=== PATIENT | female | born 1960 | race Caucasian/White ===

== ENCOUNTER 2016-06-21 12:08 | Emergency (ER) | payer OTHER ==
--- NOTE | 2016-06-22 05:15 | ED CLINICAL REPORT ---
Clinical Report - Physicians/Mid Levels [facility] [address] [place] [address] 06/21/2016 12:13 Patient: SOWMYA BRIGHT Time Seen: 12:40. Arrived- By private vehicle. Historian- patient. HISTORY OF PRESENT ILLNESS Chief Complaint: BEHAVIOR CHANGE and AGITATED. This started several days ago. No situational problems or recent drug use or alcohol consumption. She has exhibited a behavior change. She has had mood swings and insomnia. Has not been eating or sleeping. She has had anxiety and yazdanism delusions. Has been paranoid. No suicidal thoughts or self-injury inflicted. The symptoms are described as severe. No injury is present. Similar symptoms previously: Diagnosis: (unknown psychiatric diagnosis). ( She was taking psychiatric medications briefly, but not for several years per her ). Recent medical care: Not recently seen/assessed. REVIEW OF SYSTEMS No headache, weakness, chest pain, palpitations or abdominal pain. No vomiting, diarrhea, black stools, numbness or fever. No sore throat, cough, difficulty breathing, urinary frequency or skin rash. No enlarged lymph nodes. All systems otherwise negative, except as recorded above. PAST HISTORY ( Aneurysm. Hypertension. Anemia. Surgeries: Aneurysm Clip []. ). SOCIAL HISTORY Never smoker. No alcohol use or drug use. Is a local resident. Has social support. ADDITIONAL NOTES The nursing notes have been reviewed. PHYSICAL EXAM Vital Signs: 06/21/2016 13:00 BP: 189/103. HR: 94. RR: 14. O2 saturation: 100%. Temp: 98.3 F. Pain level now: 0/10. Appearance: Alert. Patient is in moderate distress. Patient is uncooperative. Anxious. Eyes: Pupils equal, round and reactive to light. No scleral icterus. ENT: The mucous membranes are not dry. Neck: Normal inspection. Neck supple. CVS: Normal heart rate and rhythm. Heart sounds normal. Respiratory: Breath sounds normal. Chest nontender. Abdomen: Soft and nontender. Back: No tenderness. Skin: Skin warm and dry. Normal skin color. Normal skin turgor. Skin not cool on palpation. No signs of IV drug use or self-injury or diaphoresis. Extremities: Extremities exhibit normal ROM. No lower extremity edema. Psych / Neuro: Speech not abnormal. She is not disoriented. The patient exhibits altered thought processes. Appears to have yazdanism delusions. Denies suicidal thoughts. Patient does not express homicidal thoughts. She does not appear to understand hers illness or feel treatment is necessary. She seems unconcerned about hers current condition. Cranial nerves normal (as tested). No cerebellar findings. No motor deficit. No sensory deficit. Reflexes normal. LABS, X-RAYS, AND EKG Laboratory Tests: UA-Culture if indicated: (EUGENE: 06/21/2016 13:20) ( [facility] 06/21[facility]2016 13:52) Final results Test Result Flag Units (Reference) URINE COLOR YELLOW URINE APPEARANCE CLEAR URINE GLUCOSE NEGATIVE (NEGATIVE) URINE BILIRUBIN NEGATIVE (NEGATIVE) URINE KETONE NEGATIVE (NEGATIVE) URINE SPECIFIC GRAVITY <= 1.005 L (1.010-1.030) URINE PH 6.0 (5.0-8.0) URINE PROTEIN NEGATIVE (NEGATIVE) URINE UROBILINOGEN 0.2 EU/dL (0.2-1.0) URINE NITRITE NEGATIVE (NEGATIVE) URINE BLOOD TRACE-INTACT (NEGATIVE) URINE LEUK ESTERASE POSITIVE (NEGATIVE) URINE RBC NONE SEEN rbc/hpf (0-1) URINE WBC 3-5 wbc/hpf (0-1) URINE EPITHELIAL CELLS 5-10 EPI/hpf (0-5) URINE BACTERIA MODERATE (2+ TO 3+) (NONE SEEN) URINE COMMENT CULTURE INDICATED URINE CULTURES ARE SET-UP BASED ON THE FOLLOWING CRITERIA:POSITIVE NITRITEPOSITIVE LEUKOCYTE ESTERASEGREATER THAN 10 WHITE BLOOD CELLSMODERATE (2+) OR GREATER BACTERIA Urine: (EUGENE: 06/21/2016 13:20) ( [facility] 06/21/2016 13:41) Final results Test Result Flag Units (Reference) URINE NEGATIVE CBC w Diff: (EUGENE: 06/21/2016 13:20) ( MsgRcvd 06/21/2016 13:38) Final results Test Result Flag Units (Reference) WHITE BLOOD COUNT 6.5 K/uL (4.5-11.5) RED BLOOD COUNT 4.74 M/uL (4.00-5.20) HEMOGLOBIN 13.6 gm/dL (12.0-16.0) HEMATOCRIT 40.0 % (36.0-46.0) MEAN CELL VOLUME 84 fL (80-100) MEAN CORPUSCULAR HGB 29 pg (26-34) MEAN CORPUSCULAR HGB CONC 34 g/dL (31-37) RED CELL DISTRIBUTION WIDTH 12.8 % (11.6-14.8) PLATELET COUNT 294 K/uL (150-400) NEUTROPHIL % 71.3 % (50-75) LYMPH % 23.3 L % (25-40) MONO % 5.0 % (3-14) EOSINOPHIL % 0.1 % (0-4) BASOPHIL % 0.3 % (0-2) PT with INR: (EUGENE: 06/21/2016 13:20) ( [facility] 06/21/2016 13:49) Final results Test Result Flag Units (Reference) INR 0.9 (0.8-1.2) Low Intensity Therapy: INR 1.5-2.0 PT range 18.5-23.1Mod.Intensity Therapy: INR 2.0-3.0 PT range 23.1-31.5High Intensity Therapy: INR 2.5-3.5 PT range 27.4-35.5High Intensity Therapy 2: INR 3.0-4.0 PT range 31.5-39.3 Ethyl Alcohol: (EUGENE: 06/21/2016 13:30) ( [facility] 06/21/2016 15:02) Final results Test Result Flag Units (Reference) ETHYL ALCOHOL < 3.0 L mg/dL (3-10) Urine Drug Screen: (EUGENE: 06/21/2016 13:20) ( [facility] 06/21/2016 14:09) Final results Test Result Flag Units (Reference) AMPHETAMINE/METHAMPHETAMINE NEGATIVE (NEGATIVE) BARBITURATE NEGATIVE (NEGATIVE) BENZODIAZEPINE NEGATIVE (NEGATIVE) CANNABINOID NEGATIVE (NEGATIVE) COCAINE NEGATIVE (NEGATIVE) ECSTASY NEGATIVE (NEGATIVE) METHADONE NEGATIVE (NEGATIVE) OPIATE NEGATIVE (NEGATIVE) The urine drug screen is a qualitative screening test fordrug overdose and abuse. All screen results should beconsidered as presumptive.Drugs screened for are as follows:BenzodiazepinesCocaineAmphetamines/MetamphetaminesTHC (Tetrahydrocannabinol)OpiatesBarbituratesEcstasyMethadonePositive results are unconfirmed. For confirmation, notifythe lab for the specimen to be sent to the reference lab.All confirmations must be performed by a differentmethodology.The ingestion of natural herbal and plant productscontaining Ephedra/Ephedra metabolites can produce in urineone or more substances capable of cross reacting withamphetamine/methamphetamine immunoassays. These testsprovide a preliminary result only. A more specificalternative chemical method must be used to obtain aconfirmed analytical result. Salicylate Level: (EUGENE: 06/21/2016 13:20) ( MsgRcvd 06/21/2016 14:10) Final results Test Result Flag Units (Reference) SALICYLATE <2.8 L mg/dL (2.8-20) CMP: (EUGENE: 06/21/2016 13:20) ( MsgRcvd 06/21/2016 14:11) Final results Test Result Flag Units (Reference) GLUCOSE 151 H mg/dL (70-110) BUN 13 mg/dL (7-18) CREATININE 0.7 mg/dL (0.6-1.3) Estimated GFR >60 mL/min Estimated GFR- >60 mL/min Note: Persistent reduction over 3 months in eGFR<60 mL/min/1.73 m2 defines CKD. Patients with eGFR values>=60 mL/min/1.73 m2 may also have CKD if evidence ofpersistent proteinuria. Additional information may be foundat www.kidney.org. SODIUM 141 mmol/L (136-145) POTASSIUM 3.3 L mmol/L (3.5-5.1) CHLORIDE 103 mmol/L (98-107) CARBON DIOXIDE 23 mmol/L (21-32) CALCIUM 9.4 mg/dL (8.5-10.1) TOTAL PROTEIN 8.6 H g/dL (6.4-8.2) ALBUMIN 4.0 g/dL (3.3-5.0) BILIRUBIN, TOTAL 0.7 mg/dL (0.0-1.0) ALKALINE PHOSPHATASE 84 U/L (46-116) AST (SGOT) 31 U/L (15-37) ALT (SGPT) 55 U/L (12-78) ACETAMINOPHEN < 2.0 L ug/mL (10-30) . Pulse Oximetry: 06/21/2016 13:00 O2 saturation: 100%. (FIO2 - room air). Interpretation: normal. PROGRESS AND PROCEDURES Course of Care: Ativan 2mg IM given. Zyprexa 5 mg + 5 mg PO given. Macrobid 100 mg PO given. 14:46 06/21/16. 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 Other than delusions, she has a normal / nonfocal neurologic exam, no headache or other symptoms of subarachnoid hemorrhage - CT head is not clinically indicated. 17:44 06/21/16. Still quite agitated with hyperreligiosity. 06/21/2016 21:17 BP: 156/87. HR: 82. RR: 16. O2 saturation: 100%. patient evaluated by the pat team. Patient will be deferred to the DMHP. The MHP had reviewed the patient's case. Patient is not a danger to self or others. Spoke with the patient's spouse in regards to the patient's presentation here in the emergency department. Resources provided. Spouse is also comfortable with the patient returning home and can monitor the patient. Hotlined for any concerns for danger to self or others provided. Patient is admitted for in the emergency department and in no acute distress. Patient has been able to rest while here in the emergency department. Do not feel patient is a danger to self or others on my own examination. Patient is stable for outpatient management. I discussed with the patient her workup here in the emergency Department clinic diagnosis, home care, follow-up, and return precautions. All questions have been answered. The patient is spouse expressed understanding of these instructions and was agreeable to them. Patient/family counseled. Additional history sought (from spouse and family after patient arrival). Old ED records reviewed. Disposition: Condition: stable. CLINICAL IMPRESSION 06/21/2016 21:17 BP: 156/87. HR: 82. RR: 16. O2 saturation: 100%. 06/21/2016 18:37 BP: 157/102. HR: 91. RR: 16. O2 saturation: 99%. Adjustment disorder with anxiety. Acute psychosis with delusions, associated with a severe manic episode. Essential hypertension. Acute urinary tract infection with cystitis. INSTRUCTIONS Do not work for three days. Drink plenty of fluids. No alcohol. Warnings: Further evaluation is necessary. It is very important to follow up with a physician. SEDATIVE MEDICATION: You were given sedative medication during your visit. Do not drive or operate dangerous machinery. GENERAL WARNINGS: Return or contact your physician immediately if your condition worsens or changes unexpectedly, if not improving as expected, or if other problems arise. Your Current Medications: CONTINUE TAKING THE FOLLOWING MEDICATIONS: ASA Oral. Lisinopril Oral. Prescription Medications: Macrobid 100 mg: Take 1 capsule orally every 12 hours for 7 days. No refills. Substitution is permissible. Zyprexa 10 mg: take 1 tablet orally every day. Dispense ten (10). No refills. Substitution is permissible Follow-up: Follow up with your doctor in two days. Screening today revealed the patient's blood pressure to be in the hypertensive range. The patient should follow up with a primary care provider for blood pressure management. (Electronically signed by Nelson Domínguez Dr. 06/22/2016 6:43)
--- NOTE | 2016-06-22 05:15 | ED CLINICAL REPORT ---
Clinical Report - Physicians/Mid Levels [facility] [address] [place] [address] 06/21/2016 12:13 Patient: SOWMYA BRIGHT Time Seen: 12:40. Arrived- By private vehicle. Historian- patient. HISTORY OF PRESENT ILLNESS Chief Complaint: BEHAVIOR CHANGE and AGITATED. This started several days ago. No situational problems or recent drug use or alcohol consumption. She has exhibited a behavior change. She has had mood swings and insomnia. Has not been eating or sleeping. She has had anxiety and hinduism delusions. Has been paranoid. No suicidal thoughts or self-injury inflicted. The symptoms are described as severe. No injury is present. Similar symptoms previously: Diagnosis: (unknown psychiatric diagnosis). ( She was taking psychiatric medications briefly, but not for several years per her ). Recent medical care: Not recently seen/assessed. REVIEW OF SYSTEMS No headache, weakness, chest pain, palpitations or abdominal pain. No vomiting, diarrhea, black stools, numbness or fever. No sore throat, cough, difficulty breathing, urinary frequency or skin rash. No enlarged lymph nodes. All systems otherwise negative, except as recorded above. PAST HISTORY ( Aneurysm. Hypertension. Anemia. Surgeries: Aneurysm Clip []. ). SOCIAL HISTORY Never smoker. No alcohol use or drug use. Is a local resident. Has social support. ADDITIONAL NOTES The nursing notes have been reviewed. PHYSICAL EXAM Vital Signs: 06/21/2016 13:00 BP: 189/103. HR: 94. RR: 14. O2 saturation: 100%. Temp: 98.3 F. Pain level now: 0/10. Appearance: Alert. Patient is in moderate distress. Patient is uncooperative. Anxious. Eyes: Pupils equal, round and reactive to light. No scleral icterus. ENT: The mucous membranes are not dry. Neck: Normal inspection. Neck supple. CVS: Normal heart rate and rhythm. Heart sounds normal. Respiratory: Breath sounds normal. Chest nontender. Abdomen: Soft and nontender. Back: No tenderness. Skin: Skin warm and dry. Normal skin color. Normal skin turgor. Skin not cool on palpation. No signs of IV drug use or self-injury or diaphoresis. Extremities: Extremities exhibit normal ROM. No lower extremity edema. Psych / Neuro: Speech not abnormal. She is not disoriented. The patient exhibits altered thought processes. Appears to have hinduism delusions. Denies suicidal thoughts. Patient does not express homicidal thoughts. She does not appear to understand hers illness or feel treatment is necessary. She seems unconcerned about hers current condition. Cranial nerves normal (as tested). No cerebellar findings. No motor deficit. No sensory deficit. Reflexes normal. LABS, X-RAYS, AND EKG Laboratory Tests: UA-Culture if indicated: (EUGENE: 06/21/2016 13:20) ( [facility] 13:52[facility] Final results Test Result Flag Units (Reference) URINE COLOR YELLOW URINE APPEARANCE CLEAR URINE GLUCOSE NEGATIVE (NEGATIVE) URINE BILIRUBIN NEGATIVE (NEGATIVE) URINE KETONE NEGATIVE (NEGATIVE) URINE SPECIFIC GRAVITY <= 1.005 L (1.010-1.030) URINE PH 6.0 (5.0-8.0) URINE PROTEIN NEGATIVE (NEGATIVE) URINE UROBILINOGEN 0.2 EU/dL (0.2-1.0) URINE NITRITE NEGATIVE (NEGATIVE) URINE BLOOD TRACE-INTACT (NEGATIVE) URINE LEUK ESTERASE POSITIVE (NEGATIVE) URINE RBC NONE SEEN rbc/hpf (0-1) URINE WBC 3-5 wbc/hpf (0-1) URINE EPITHELIAL CELLS 5-10 EPI/hpf (0-5) URINE BACTERIA MODERATE (2+ TO 3+) (NONE SEEN) URINE COMMENT CULTURE INDICATED URINE CULTURES ARE SET-UP BASED ON THE FOLLOWING CRITERIA:POSITIVE NITRITEPOSITIVE LEUKOCYTE ESTERASEGREATER THAN 10 WHITE BLOOD CELLSMODERATE (2+) OR GREATER BACTERIA Urine: (EUGENE: 06/21/2016 13:20) ( [facility] 06/21/2016 13:41) Final results Test Result Flag Units (Reference) URINE NEGATIVE CBC w Diff: (EUGENE: 06/21/2016 13:20) ( MsgRcvd 06/21/2016 13:38) Final results Test Result Flag Units (Reference) WHITE BLOOD COUNT 6.5 K/uL (4.5-11.5) RED BLOOD COUNT 4.74 M/uL (4.00-5.20) HEMOGLOBIN 13.6 gm/dL (12.0-16.0) HEMATOCRIT 40.0 % (36.0-46.0) MEAN CELL VOLUME 84 fL (80-100) MEAN CORPUSCULAR HGB 29 pg (26-34) MEAN CORPUSCULAR HGB CONC 34 g/dL (31-37) RED CELL DISTRIBUTION WIDTH 12.8 % (11.6-14.8) PLATELET COUNT 294 K/uL (150-400) NEUTROPHIL % 71.3 % (50-75) LYMPH % 23.3 L % (25-40) MONO % 5.0 % (3-14) EOSINOPHIL % 0.1 % (0-4) BASOPHIL % 0.3 % (0-2) PT with INR: (EUGENE: 06/21/2016 13:20) ( [facility] 06/21/2016 13:49) Final results Test Result Flag Units (Reference) INR 0.9 (0.8-1.2) Low Intensity Therapy: INR 1.5-2.0 PT range 18.5-23.1Mod.Intensity Therapy: INR 2.0-3.0 PT range 23.1-31.5High Intensity Therapy: INR 2.5-3.5 PT range 27.4-35.5High Intensity Therapy 2: INR 3.0-4.0 PT range 31.5-39.3 Ethyl Alcohol: (EUGENE: 06/21/2016 13:30) ( [facility] 06/21/2016 15:02) Final results Test Result Flag Units (Reference) ETHYL ALCOHOL < 3.0 L mg/dL (3-10) Urine Drug Screen: (EUGENE: 06/21/2016 13:20) ( [facility] 06/21/2016 14:09) Final results Test Result Flag Units (Reference) AMPHETAMINE/METHAMPHETAMINE NEGATIVE (NEGATIVE) BARBITURATE NEGATIVE (NEGATIVE) BENZODIAZEPINE NEGATIVE (NEGATIVE) CANNABINOID NEGATIVE (NEGATIVE) COCAINE NEGATIVE (NEGATIVE) ECSTASY NEGATIVE (NEGATIVE) METHADONE NEGATIVE (NEGATIVE) OPIATE NEGATIVE (NEGATIVE) The urine drug screen is a qualitative screening test fordrug overdose and abuse. All screen results should beconsidered as presumptive.Drugs screened for are as follows:BenzodiazepinesCocaineAmphetamines/MetamphetaminesTHC (Tetrahydrocannabinol)OpiatesBarbituratesEcstasyMethadonePositive results are unconfirmed. For confirmation, notifythe lab for the specimen to be sent to the reference lab.All confirmations must be performed by a differentmethodology.The ingestion of natural herbal and plant productscontaining Ephedra/Ephedra metabolites can produce in urineone or more substances capable of cross reacting withamphetamine/methamphetamine immunoassays. These testsprovide a preliminary result only. A more specificalternative chemical method must be used to obtain aconfirmed analytical result. Salicylate Level: (EUGENE: 06/21/2016 13:20) ( MsgRcvd 06/21/2016 14:10) Final results Test Result Flag Units (Reference) SALICYLATE <2.8 L mg/dL (2.8-20) CMP: (EUGENE: 06/21/2016 13:20) ( MsgRcvd 06/21/2016 14:11) Final results Test Result Flag Units (Reference) GLUCOSE 151 H mg/dL (70-110) BUN 13 mg/dL (7-18) CREATININE 0.7 mg/dL (0.6-1.3) Estimated GFR >60 mL/min Estimated GFR- >60 mL/min Note: Persistent reduction over 3 months in eGFR<60 mL/min/1.73 m2 defines CKD. Patients with eGFR values>=60 mL/min/1.73 m2 may also have CKD if evidence ofpersistent proteinuria. Additional information may be foundat www.kidney.org. SODIUM 141 mmol/L (136-145) POTASSIUM 3.3 L mmol/L (3.5-5.1) CHLORIDE 103 mmol/L (98-107) CARBON DIOXIDE 23 mmol/L (21-32) CALCIUM 9.4 mg/dL (8.5-10.1) TOTAL PROTEIN 8.6 H g/dL (6.4-8.2) ALBUMIN 4.0 g/dL (3.3-5.0) BILIRUBIN, TOTAL 0.7 mg/dL (0.0-1.0) ALKALINE PHOSPHATASE 84 U/L (46-116) AST (SGOT) 31 U/L (15-37) ALT (SGPT) 55 U/L (12-78) ACETAMINOPHEN < 2.0 L ug/mL (10-30) . Pulse Oximetry: 06/21/2016 13:00 O2 saturation: 100%. (FIO2 - room air). Interpretation: normal. PROGRESS AND PROCEDURES Course of Care: Ativan 2mg IM given. Zyprexa 5 mg + 5 mg PO given. Macrobid 100 mg PO given. 14:46 06/21/16. Pt has been refusing zyprexa, but will accept now after long discussion with her and her Pt denies SI or HI - states she is a [employer] and would never harm herself or others. Other than delusions, she has a normal / nonfocal neurologic exam, no headache or other symptoms of subarachnoid hemorrhage - CT head is not clinically indicated. 17:44 06/21/16. Still quite agitated with hyperreligiosity. 06/21/2016 21:17 BP: 156/87. HR: 82. RR: 16. O2 saturation: 100%. patient evaluated by the pat team. Patient will be deferred to the DMHP. The MHP had reviewed the patient's case. Patient is not a danger to self or others. Spoke with the patient's spouse in regards to the patient's presentation here in the emergency department. Resources provided. Spouse is also comfortable with the patient returning home and can monitor the patient. Hotlined for any concerns for danger to self or others provided. Patient is admitted for in the emergency department and in no acute distress. Patient has been able to rest while here in the emergency department. Do not feel patient is a danger to self or others on my own examination. Patient is stable for outpatient management. I discussed with the patient her workup here in the emergency Department clinic diagnosis, home care, follow-up, and return precautions. All questions have been answered. The patient is spouse expressed understanding of these instructions and was agreeable to them. Patient/family counseled. Additional history sought (from spouse and family after patient arrival). Old ED records reviewed. Disposition: Condition: stable. CLINICAL IMPRESSION 06/21/2016 21:17 BP: 156/87. HR: 82. RR: 16. O2 saturation: 100%. 06/21/2016 18:37 BP: 157/102. HR: 91. RR: 16. O2 saturation: 99%. Adjustment disorder with anxiety. Acute psychosis with delusions, associated with a severe manic episode. Essential hypertension. Acute urinary tract infection with cystitis. INSTRUCTIONS Do not work for three days. Drink plenty of fluids. No alcohol. Warnings: Further evaluation is necessary. It is very important to follow up with a physician. SEDATIVE MEDICATION: You were given sedative medication during your visit. Do not drive or operate dangerous machinery. GENERAL WARNINGS: Return or contact your physician immediately if your condition worsens or changes unexpectedly, if not improving as expected, or if other problems arise. Your Current Medications: CONTINUE TAKING THE FOLLOWING MEDICATIONS: ASA Oral. Lisinopril Oral. Prescription Medications: Macrobid 100 mg: Take 1 capsule orally every 12 hours for 7 days. No refills. Substitution is permissible. Zyprexa 10 mg: take 1 tablet orally every day. Dispense ten (10). No refills. Substitution is permissible Follow-up: Follow up with your doctor in two days. Screening today revealed the patient's blood pressure to be in the hypertensive range. The patient should follow up with a primary care provider for blood pressure management. (Electronically signed by Nelson Domínguez Dr. 06/22/2016 6:43)
--- NOTE | 2016-06-22 05:16 | ED ORDER SUMMARY ---
..... Patient: SOWMYA BRIGHT OrderSheet [facility] VisitID: [id number] [place] [address] 56y, F Registration Date/Time: 06/21/2016 ORDER SHEET Weight: 63.5 kg (stated) Allergies: No Known Drug Allergy GENERAL ORDERS: CBC w Diff Urgent (12:41 06/21/2016 PHutchinson DO) (Ack 12:42 TBergley) (13:33 EHassan R.N.) CMP Urgent (12:41 [facility]/2016 [facility] (Ack 12:42 TBergley) (13:33 EHassan R.N.) UA-Culture if indicated [facility]12:41 [facility] ([facility]ck 12:42 TBergley) (13:11 EHassan R.N.) Urine Drug Screen Urgent (12:41 [facility]2016 [facility] (Ack 12:42 TBergley) (13:11 EHassan R.N.) Urine Urgent (12:41 06/[facility]/2016 [facility] (Ack 12:42 TBergley) (13:11 EHassan R.N.) PT with INR Urgent (12:41 06/21/2016 PHchinson DO) (Ack 12:42 TBergley) (13:33 EHassan R.N.) Acetaminophen Level Urgent (12:41 06/[facility]/2016 [facility] (Ack 12:42 TBergley) (13:33 EHassan R.N.) Salicylate Level Urgent (12:41 06/21/2016 [facility] (Ack 12:42 TBergley) (13:33 EHassan R.N.) Breathalyzer (12:41 06/21/2016 [facility] (Ack 12:42 TBergley) (15:28 EHassan R.N.) Ethyl Alcohol Urgent (14:29 [facility]/21/2016 [facility] (Ack 14:29 TBergley) (14:30 TBergley) MEDICATION ORDERS: ZyPREXA Zydis ODT PO 5 mg (NOW) (12:56 06/21/2016 [facility]) (Hold 13:33 EHassan R.N.) (15:28 EHassan R.N.) Macrobid PO 100 mg (NOW) (13:47 06/21/2016 [facility]) (Hold 13:59 EHassan R.N.) (14:12 EHassan R.N.) ZyPREXA Zydis ODT PO 5 mg (NOW) (16:19 06/21/2016 [facility]) (Ack 16:21 MWinterer R.N.) (16:24 MWinterer R.N.) Ativan PO 1 mg (HIGH ALERT MEDICATION, NOW) (17:49 06/21/2016 [facility]) (18:06 TLewis R.N.) Ativan IM 2 mg (HIGH ALERT MEDICATION, NOW) (17:59 06/21/2016 [facility]) (18:06 TLewis R.N.) IV FLUIDS: ORDER SHEET NOTES: [Electronically signed by Carlito Melvin R.N. (05:39 06/22/2016)] [Electronically signed by Nelson Domínguez Dr. (06:43 06/22/2016)] [Electronically locked/signed by Carlito Melvin R.N. (05:39 06/22/2016)]
--- NOTE | 2016-06-22 05:16 | ED ORDER SUMMARY ---
..... Patient: SOWMYA BRIGHT OrderSheet [facility] VisitID: [id number] [place] [address] 56y, F Registration Date/Time: 06/21/2016 ORDER SHEET Weight: 63.5 kg (stated) Allergies: No Known Drug Allergy GENERAL ORDERS: CBC w Diff Urgent (12:41 06/21/2016 PHutchinson DO) (Ack 12:42 TBergley) (13:33 EHassan R.N.) CMP Urgent (12:41 06/21/2016 [facility] (Ack 12:42 TBergley) (13:33 EHassan R.N.) UA-Culture if indicated Urgent (12:41 [facility]/2016 [facility] (Ack 12:42 TBergley) (13:11 EHassan R.N.) Urine Drug Screen Urgent (12:41 [facility]/21/2016 [facility] (Ack 12:42 TBergley) (13:11 EHassan R.N.) Urine Urgent (12:41 06/21/2016 [facility] (Ack 12:42 TBergley) (13:11 EHassan R.N.) PT with INR Urgent (12:41 06/21/2016 PHchinson DO) (Ack 12:42 TBergley) (13:33 EHassan R.N.) Acetaminophen Level Urgent (12:41 06/21/2016 [facility]) (Ack 12:42 TBergley) (13:33 EHassan R.N.) Salicylate Level Urgent (12:41 06/21/2016 [facility]) (Ack 12:42 TBergley) (13:33 EHassan R.N.) Breathalyzer (12:41 06/21/2016 [facility] (Ack 12:42 TBergley) (15:28 EHassan R.N.) Ethyl Alcohol Urgent (14:29 06/21/2016 [facility]) (Ack 14:29 TBergley) (14:30 TBergley) MEDICATION ORDERS: ZyPREXA Zydis ODT PO 5 mg (NOW) (12:56 06/21/2016 [facility]) (Hold 13:33 EHassan R.N.) (15:28 EHassan R.N.) Macrobid PO 100 mg (NOW) (13:47 06/21/2016 [facility]) (Hold 13:59 EHassan R.N.) (14:12 EHassan R.N.) ZyPREXA Zydis ODT PO 5 mg (NOW) (16:19 06/21/2016 [facility]) (Ack 16:21 MWinterer R.N.) (16:24 MWinterer R.N.) Ativan PO 1 mg (HIGH ALERT MEDICATION, NOW) (17:49 06/21/2016 [facility]) (18:06 TLewis R.N.) Ativan IM 2 mg (HIGH ALERT MEDICATION, NOW) (17:59 06/21/2016 [facility]) (18:06 TLewis R.N.) IV FLUIDS: ORDER SHEET NOTES: [Electronically signed by Carlito Melvin R.N. (05:39 06/22/2016)] [Electronically signed by Nelson Domínguez Dr. (06:43 06/22/2016)] [Electronically locked/signed by Carlito Melvin R.N. (05:39 06/22/2016)]
--- NOTE | 2016-06-22 05:16 | ED NURSING NOTES ---
Clinical Report - Nurses [facility] [place] [address] 06/21/2016 12:13 Patient: SOWMYA BRIGHT TRIAGE Triage time 12:35. --12:36 Karon Beckford R.N. Triage time 1245 PM. Acuity: LEVEL 2. Chief Complaint: DEPRESSION and HALLUCINATIONS. Alert. No acute distress. SEPSIS SCREEN: Sepsis Screen. Negative (no infection suspected/documented). --13:31 Criselda Catherine R.N. 13:00 06/21/16. BP: 189/103 (small adult cuff) taken on the left arm, via an automated monitor, while lying. HR: 94. RR: 14. O2 saturation: 100% on room air. Temp: 98.3 F (oral). Pain level now: 0/10. --13:31 Criselda Catherine R.N. Weight: 63.5 kg stated. Height/Length: 62 inches Per Patient. BMI: 25.6. --12:47 Criselda Catherine R.N. Medications ASA Oral. Lisinopril Oral. --12:50 Criselda Catherine R.N. Allergies No Known Drug Allergy. --12:50 Criselda Catherine R.N. Medication/allergy information source: the patient's spouse. --13:31 Criselda Catherine R.N. History Arrived by private vehicle, and accompanied by spouse. ( Pt brought to room, refused to wear armband, refused vital signs.). --12:36 Karon Beckford R.N. Arrived by private vehicle. Historian: family. Accompanied by family. Primary physician (Dr. Rito Randolph). ( Pt's spouse pt was in [place] for "vacation due to stress and family reunion" returned on Thursday agitated, speaking about God and the end of the world" believes that this is her mission "to spread the word" Denies trying to harm herself, as per her spouse "was talking nonsense this morning" became very agitated when he tried "touching her" pt denies any sort of abuse.). This is a new problem. Symptoms are constant and still present (Thursday). She has had anxiety, describes feelings of depression and has been confused. Has been feeling agitated. Admits to having hallucinations. Treatment CRYSTALLOGRAPHY TEACHER: None. PAST MEDICAL HX: Immunizations: status is unknown. Last normal menstrual period unknown. SOCIAL HX: Never smoker. No alcohol use or drug use. No infectious disease exposure. SELF HARM ASSESSMENT: A self harm assessment was performed. The patient answered "yes" to the question "Have you recently felt down, depressed, or hopeless?" and "Have you noticed less interest or pleasure in doing things?" and "no" to the question "Are you here because you tried to hurt yourself?", "Have you ever tried to hurt yourself before today?", "Have you recently had thoughts about harming or killing others?" and "Do you have any dangerous items in your possession?". Unable to assess the patient in regard to the question "Do you have thoughts of harming or killing yourself?". The spouse reported the patient's behavior as combative, confused and anxious and included delusions and hallucinations. In the ED the patient has been agitated, having delusions and hallucinations, unable to cooperate and anxious. She has been placed under supervision with bedside precautions. She was placed in direct sight of the nurses station. FALL RISK ASSESSMENT: Fall risk assessment completed. No fall risk identified. NUTRITIONAL RISK ASSESSMENT: The nutritional risk assessment revealed no deficiencies. FUNCTIONAL ASSESSMENT: Functional assessment: no impairments noted. LEARNING NEEDS ASSESSMENT: The learning needs assessment revealed no barriers. ABUSE ASSESSMENT: Abuse assessment: unable to obtain due to patient condition. SKIN INTEGRITY ASSESSMENT: Skin integrity risk assessment completed. No skin integrity risk identified. --13:31 Criselda Catherine R.N. PROBLEMS: Aneurysm. Hypertension. Anemia. --12:50 Criselda Catherine R.N. ADDITIONAL SURGERIES: Aneurysm Clip []. . --12:50 Criselda Cathernie R.N. Interventions ID band on patient. --13:31 Criselda Catherine R.N. PHYSICAL ASSESSMENT Ambulatory to room. GENERAL / NEURO / PSYCH: Speech within normal limits. She appears to have altered thought processes, verbalized as flights of ideas. Appears anxious, agitated and euphoric. Patient appears well-nourished and neat and clean. RESPIRATORY: Respirations not labored. Breath sounds within normal limits. GI / : Abdomen soft and nontender. Bowel sounds within normal limits. SKIN: Skin intact. Skin is warm and dry. Skin color is within normal limits. --13:32 Criselda Catherine R.N. NURSING PROGRESS NOTES The initial plan of care for this patient has been created This plan of care was discussed with the patient. Patient gowned. Warming measures: blanket applied. Reassurance given. Suicide precautions initiated. Two patient identifiers checked. :family confirmed. Bed placed in lowest position. Brakes of bed on. --13:33 Criselda Catherine R.N. 14:12 06/21/2016 Macrobid PO Capsules 100 mg given. Allergies verified and confirmed 5 rights. --14:12 Criselda Catherine R.N. Reassurance given. Suicide precautions initiated. Overall patient status is the same- she states feels the same. ( Pt is now crying, "about the end of the world is coming and am here to do Gods work, with all the abortions and the male female confusion" Pt's family at bedside, text messages shown to me which states " The end is coming and I will see you soon, just know that I love you" Pt being monitored, still has a phone on her, no suicide ideation noted. Precautions in placed, will try to breathalyzer her again). GENERAL / NEURO / PSYCH: The patient reports anxiety. Patient appears agitated. --14:15 Criselda Catherine R.N. ( Report from Criselda LOPEZ). --15:16 Dwayne Reyes R.N. ( Tech is in the room taking VS. Pt is calm and cooperative at this time.). --15:25 Dwayne Reyes R.N. 15:03 06/21/2016 ZYPREXA ZYDIS ODT (OLANZapine) PO Tablets 5 mg given. Allergies verified, confirmed 5 rights and sedative warning given to the patient and patient's family. --15:28 Criselda Catherine R.N. 15:36 06/21/16. BP: 197/109. HR: 94. --15:36 Carey Colemania ( Pt is in the room holding her hands up in the air and talking about family that are on the other side.). --15:54 Dwayne Reyes R.N. ( "Praise Paulino" the pt keeps repeating it over and over.). --15:56 Dwayne Reyes R.N. ( Resting in bed with eyes closed.). --16:15 Dwayne Reyes R.N. 16:24 06/21/2016 ZYPREXA ZYDIS ODT (OLANZapine) PO 5 mg given. Allergies verified, confirmed 5 rights and sedative warning given to the patient. --16:24 Kayla Cobian R.N. ( Gave the pt water. She is in the room praying.). --16:29 Dwayne Reyes R.N. ( The wanted an update on his . Pt is in the bed with her eyes closed resting.). --17:04 Dwayne Ryees R.N. ( Pt is now yelling out for Paulino. Pt was told her would be back and she said ok.). --17:39 Dwayne Reyes R.N. ( soil field technician is in the room to get VS. Pt is crying and screaming out for Paulino and the Lord.). --17:45 Dwayne Reyes R.N. 18:06 06/21/2016 Ativan PO 1 mg (HIGH ALERT MEDICATION, NOW) was refused by patient (refused spit the medication out). Dwayne Reyes --18:06 Dwayne Reyes R.N. 18:06 06/21/2016 Ativan (LORazepam) IM 2 mg given. Given in the left anterior lateral thigh. Allergies verified, confirmed 5 rights and sedative warning given to the patient. --18:06 Dwayne Reyes R.N. ( Security was called. The pt refused to take meds. Pt was very agitated and screaming out not to touch her that she had the lord's power. Pt was given an IM shot to calm her down.). --18:08 Dwayne Reyes R.N. ( Pt is resting in bed with eyes closed.). --18:31 Dwayne Reyes R.N. 18:37 06/21/16. BP: 157/102. HR: 91. RR: 16. O2 saturation: 99%. --18:38 Erika Cisneros ( Pt is resting in bed with eyes closed. was told of the plan.). --18:51 Dwayne Reyes R.N. ( Pt is resting in bed with her eyes closed with slow non labored breathing.). --20:02 Dwayne Reyes R.N. 20:18. Care transferred and report received. --20:27 Carlito Melvin R.N. 20:27 [place] placed on patient. The patient is sleeping. RESPIRATORY: No respiratory distress. SKIN: Skin color within normal limits. --20:28 Carlito Melvin R.N. The patient is resting quietly. RESPIRATORY: No respiratory distress. SKIN: Skin is warm and dry. Skin color within normal limits. --21:18 Carlito Melvin R.N. 21:17 06/21/16. BP: 156/87. HR: 82. RR: 16. O2 saturation: 100%. --21:18 Carlito Melvin R.N. 21:20 Patient given water to drink. --21:21 Carlito Melvin R.N. 22:14. The patient is sleeping. RESPIRATORY: No respiratory distress. SKIN: Skin color within normal limits. --22:14 Carlito Melvin R.N. 23:19. The patient is sleeping. RESPIRATORY: No respiratory distress. SKIN: Skin color within normal limits. --23:19 Carlito Melvin R.N. 00:14 PAT team primary care physician with pt for eval. --00:20 Carlito Melvin R.N. 00:51. The patient is resting quietly. RESPIRATORY: No respiratory distress. SKIN: Skin color within normal limits. --00:52 Carlito Melvin R.N. Belongings in locker # 2, secured with lock # 2. --01:56 McQuoid, Maricarmen, ER Tech1 02:40. The patient is sleeping. RESPIRATORY: No respiratory distress. SKIN: Skin color within normal limits. --02:40 Carlito Melvin R.N. 04:15. The patient is sleeping. RESPIRATORY: No respiratory distress. SKIN: Skin is warm and dry. Skin color within normal limits. --04:16 Carlito Melvin R.N. 04:35 [facility] with patient for evaluation. --05:15 Carlito Melvin R.N. 05:09 Patient given cup of water. --05:16 Carlito Melvin R.N. 05:22 Patient given her belongings. --05:25 Carlito Melvin R.N. 05:25 Patient to restroom. --05:25 Carlito Melvin R.N. 05:35. The patient is calm and resting quietly. GENERAL / NEURO / PSYCH: Alert. Oriented X 4. Patient appears calm and cooperative. Affect appears normal. RESPIRATORY: No respiratory distress. SKIN: Skin is warm and dry. Skin color within normal limits. --05:39 Carlito Melvin R.N. DISPOSITION / DISCHARGE Departure time: 05:37. Condition at departure: stable. No learning barriers present. Discharge instructions provided and reviewed with the patient and spouse. Reviewed medication(s) side effects, precautions, dosing and course information. Prescription(s) given to the patient. Patient and spouse verbalized understanding. Written instructions provided in Persian. The patient was discharged home and accompanied by spouse. She left the Emergency Department ambulatory and via private vehicle. Spouse driving. FALL RISK ASSESSMENT: Fall risk assessment completed. No fall risk identified. --05:39 Carlito Melvin R.N. 05:19 06/22/16. BP: 159/95. HR: 87. RR: 15. O2 saturation: 100% on room air. Pain level now: 0/10. --05:39 Carlito Melvin R.N. Locked/Released at 06/22/2016 5:39 by Carlito Melvin R.N.
--- NOTE | 2016-06-22 06:43 | ED DISCHARGE INSTRUCTIONS ---
Patient: SOWMYA BRIGHT General Instructions [facility] VisitID: [id number] [place] [address] 56y, F Registration Date/Time: 06/21/2016 06/21/2016 21:17 BP: 156/87. HR: 82. RR: 16. O2 saturation: 100%. 06/21/2016 18:37 BP: 157/102. HR: 91. RR: 16. O2 saturation: 99%. Adjustment disorder with anxiety. Acute psychosis with delusions, associated with a severe manic episode. Essential hypertension. Acute urinary tract infection with cystitis. INSTRUCTIONS Do not work for three days. Drink plenty of fluids. No alcohol. Warnings: Further evaluation is necessary. It is very important to follow up with a physician. SEDATIVE MEDICATION: You were given sedative medication during your visit. Do not drive or operate dangerous machinery. GENERAL WARNINGS: Return or contact your physician immediately if your condition worsens or changes unexpectedly, if not improving as expected, or if other problems arise. Your Current Medications: CONTINUE TAKING THE FOLLOWING MEDICATIONS: ASA Oral. Lisinopril Oral. Prescription Medications: Macrobid 100 mg: Take 1 capsule orally every 12 hours for 7 days. No refills. Substitution is permissible. Zyprexa 10 mg: take 1 tablet orally every day. Dispense ten (10). No refills. Substitution is permissible Follow-up: Follow up with your doctor in two days. Screening today revealed the patient's blood pressure to be in the hypertensive range. The patient should follow up with a primary care provider for blood pressure management. ADDITIONAL INFORMATION High Blood Pressure --Established High Blood Pressure (Hypertension) is a chronic disease. The cause is unknown in most cases. It can usually be controlled with lifestyle changes and/or medicines. Symptoms of high blood pressure may include headache, dizziness, visual changes, chest pain and shortness of breath. Sometimes it causes no symptoms at all. However, even if there are no symptoms, untreated high blood pressure increases the risk of heart attack, also known as acute myocardial infarction, or AMI, and stroke. It is a serious health risk and should not be ignored. A normal blood pressure is 120/80 or less. The first (top) number is the "systolic" pressure. The second (bottom) number is the "diastolic" pressure. Hypertension exists when either the top number is 140 or higher, OR the bottom number is 90 or higher on repeated measurements. Home Care: All patients with high blood pressure should do the following to lower their pressure. If you are on medicines, then these methods may reduce or eliminate your need for medicines in the future. Begin a weight loss program if you are overweight. Reduce your salt intake. Avoid high salt foods (olives, pickles, smoked meats, salted potato chips, etc.). Do not add salt to your food at the table. Use only small amounts of salt when cooking. Begin an exercise program. Discuss with your doctor what type of exercise program would be best for you. It doesn't have to be difficult. Even brisk walking for 20 minutes three times a week is a good form of exercise. Avoid medicines which contain heart stimulants. This includes many cold and sinus decongestant pills and sprays as well as diet pills. Check the warnings about hypertension on the label. Stimulants such as amphetamine or cocaine could be lethal for someone with hypertension. Never take these. Limit your caffeine intake or switch to caffeine-free products. Stop smoking. If you are a long-time smoker, this can be hard. Enroll in a stop-smoking program to improve your chance of success. Learning how to handle stress better is an important part of any program to lower blood pressure. Learn about relaxation methods such as meditation, yoga or biofeedback. If medicines were prescribed, take them exactly as directed. Missing doses may cause your blood pressure get out of control. Consider buying an automatic blood pressure machine (available at most pharmacies). Use this to monitor your blood pressure at home and report the results to your doctor. Follow Up: Regular visits to your own physician for blood pressure checks and medicine adjustment is an important part of your care. Make a follow-up appointment as directed by our staff. Get Prompt Medical Attention if any of the following occur: Chest pain or shortness of breath Severe headache Throbbing or rushing sound in the ears Nosebleed Sudden severe abdominal pain Extreme drowsiness, confusion or fainting Dizziness or vertigo (dizziness with spinning sensation) Weakness of an arm or leg or one side of the face Difficulty with speech or vision Bladder Infection,Female (Adult) A bladder infection ("cystitis" or "UTI") usually causes a constant urge to urinate and a burning when passing urine. Urine may be cloudy, smelly or dark. There may be pain in the lower abdomen. A bladder infection occurs when bacteria from the vaginal area enter the bladder opening (urethra). This can occur from sexual intercourse, wearing tight clothing, dehydration and other factors. Home Care: Drink lots of fluids (at least 6-8 glasses a day, unless you must restrict fluids for other medical reasons). This will force the medicine into your urinary system and flush the bacteria out of your body. Avoid sexual intercourse until your symptoms are gone. Avoid caffeine, alcohol and spicy foods. These can irritate the bladder. A bladder infection is treated with antibiotics. You may also be given Pyridium (generic = phenazopyridine) to reduce the burning sensation. This medicine will cause your urine to become a bright orange color. The orange urine may stain clothing. You may wear a pad or panty-liner to protect clothing. Preventing Future Infections: Always wipe from front to back after a bowel movement. Keep the genital area clean and dry. Drink plenty of fluids each day to avoid dehydration. Both sexual partners should wash before intercourse. Urinate right after intercourse to flush out the bladder. Wear cotton underwear and cotton-lined panty hose; avoid tight-fitting pants. If you are on control pills and are having frequent bladder infections, discuss with your doctor. Follow Up: Return to this facility or see your doctor if ALL symptoms are not gone after three days of treatment. Get Prompt Medical Attention if any of the following occur: Fever of 100.4F (38C) or higher, or as directed by your healthcare provider No improvement by the third day of treatment Increasing back or abdominal pain Repeated vomiting; unable to keep medicine down Weakness, dizziness or fainting Vaginal discharge Pain, redness or swelling in the labia (outer vaginal area) Adjustment Disorder An adjustment disorder is a condition that results from having a hard time coping with the normal stresses of life. You may feel you have too much to do and cant get it all done. These feelings may be triggered by divorce, job loss, someone you know dying, or by a positive event like getting a new job or getting . These feelings may interfere with your relationships at home and at work. With this condition, it is common to feel sad, guilty, hopeless and restless. These feelings may continue for weeks or months. It can be helpful to identify what is causing the additional stress and takes steps to get extra support. If new stressful events do not occur, it is likely that you will start feeling better within six months. Home Care: If you have been given a prescription for medicine, take it as directed. It helps to talk about your feelings and thoughts with family or friends that understand and support you. Follow Up with your doctor or therapist as advised by our staff. Let them know if this condition lasts more than six months without sign of improvement. For more information, contact the [employer] [place] [employer] at 007-764-3392 or visit www.addy.org. Get Prompt Medical Attention if any of the following occur: Worsening depression or anxiety Feeling out of control Thoughts of harming yourself or another Being unable to care for yourself Nitrofurantoin, Nitrofurantoin, Macrocrystalline Oral capsule What is this medicine? NITROFURANTOIN (ben troe fyartem AN toyn) is an antibiotic. It is used to treat urinary tract infections. How should I use this medicine? Take this medicine by mouth with a glass of water. Follow the directions on the prescription label. Take this medicine with food or milk. Take your doses at regular intervals. Do not take your medicine more often than directed. Do not stop taking except on your doctor's advice. Talk to your chemical production machine operator regarding the use of this medicine in children. While this drug may be prescribed for selected conditions, precautions do apply. What side effects may I notice from receiving this medicine? Side effects that you should report to your doctor or health pharmacy care coordinator as soon as possible: allergic reactions like skin rash or hives, swelling of the face, lips, or tongue chest pain cough difficulty breathing dizziness, drowsiness fever or infection joint aches or pains pale or blue-tinted skin redness, blistering, peeling or loosening of the skin, including inside the mouth tingling, burning, pain, or numbness in hands or feet unusual bleeding or bruising unusually weak or tired yellowing of eyes or skin Side effects that usually do not require medical attention (report to your doctor or health pharmacy care coordinator if they continue or are bothersome): dark urine diarrhea headache loss of appetite nausea or vomiting temporary hair loss What may interact with this medicine? antacids containing magnesium trisilicate probenecid quinolone antibiotics like ciprofloxacin, lomefloxacin, norfloxacin and ofloxacin sulfinpyrazone What if I miss a dose? If you miss a dose, take it as soon as you can. If it is almost time for your next dose, take only that dose. Do not take double or extra doses. Where should I keep my medicine? Keep out of the reach of children. Store at room temperature between 15 and 30 degrees C (59 and 86 degrees F). Protect from light. Throw away any unused medicine after the expiration date. What should I tell my health care provider before I take this medicine? They need to know if you have any of these conditions: anemia diabetes [id number] dehydrogenase deficiency kidney disease liver disease lung disease other chronic illness an unusual or allergic reaction to nitrofurantoin, other antibiotics, other medicines, foods, dyes or preservatives or trying to get breast-feeding What should I watch for while using this medicine? Tell your doctor or health pharmacy care coordinator if your symptoms do not improve or if you get new symptoms. Drink several glasses of water a day. If you are taking this medicine for a long time, visit your doctor for regular checks on your progress. If you are diabetic, you may get a false positive result for sugar in your urine with certain brands of urine tests. Check with your doctor. You have been given the following additional information: Hypertension, Established Bladder Infection, Female (Adult) Adjustment Disorder Nitrofurantoin, Nitrofurantoin, Macrocrystalline Oral capsule Do not work for three days. (Electronically signed by Nelson Domínguez Dr. 06/22/2016 6:43)
--- NOTE | 2016-06-22 06:43 | ED MED RECONCILIATION SUMMARY ---
Patient: SOWMYA BRIGHT Medication Reconciliation Report [facility] VisitID: [id number] [address] [place] [address] 56y, F Registration Date/Time: 06/21/2016 Weight: 63.5 kg Height/Length: 62 in. BMI: 25.6 ALLERGIES: No Known Drug Allergy The patient's Home Medications are listed below: CONTINUE TAKING THE FOLLOWING MEDICATIONS: ASA Oral Lisinopril Oral The source(s) of the original Home Medication information: patient's spouse The following Medications were given to the patient in the Emergency Department: Macrobid [PO] PO 100 mg, administered: 06/21/2016 2:12:00 PM ZYPREXA ZYDIS ODT [PO] PO 5 mg, administered: 06/21/2016 3:03:00 PM ZYPREXA ZYDIS ODT [PO] PO 5 mg, administered: 06/21/2016 4:24:00 PM Ativan [IM] IM 2 mg, administered: 06/21/2016 6:06:00 PM The following Medications were prescribed to the patient: Macrobid 100 mg: Take 1 capsule orally every 12 hours for 7 days. No refills. Substitution is permissible. -- Nelson Domínguez Dr. Zyprexa 10 mg: take 1 tablet orally every day. Dispense ten (10). No refills. Substitution is permissible -- Nelson Domínguez Dr.
--- NOTE | 2016-06-22 06:43 | ED MAR SUMMARY ---
..... Medication Administration Record [facility] [address] [place] [address] Patient: SOWMYA BRIGHT Visit ID: [id number] 56y, F Weight: 63.5 kg Height/Length: 62 in BMI: 25.6 ALLERGIES: No Known Drug Allergy Given 14:12 06/21/2016 Criselda Catherine REkaterinaNEkaterina Medication Administered: MACROBID [PO], Dose: 100 mg Capsules PO. Medication Ordered: Macrobid PO 100 mg (NOW). Given 15:03 06/21/2016 Criselda Catherine REkaterinaNEkaterina Medication Administered: ZYPREXA ZYDIS ODT [PO] (OLANZAPINE), Dose: 5 mg Tablets PO. Medication Ordered: ZyPREXA Zydis ODT PO 5 mg (NOW). Given 16:24 06/21/2016 Kayla Cobian R.N. Medication Administered: ZYPREXA ZYDIS ODT [PO] (OLANZAPINE), Dose: 5 mg PO. Medication Ordered: ZyPREXA Zydis ODT PO 5 mg (NOW). Given 18:06 06/21/2016 Dwayne Reyes RAlec Medication Administered: ATIVAN [IM] (LORAZEPAM), Dose: 2 mg IM. Medication Ordered: Ativan IM 2 mg (HIGH ALERT MEDICATION, NOW).
--- NOTE | 2016-06-22 06:43 | ED MAR SUMMARY ---
..... Medication Administration Record [facility] [address] [place] [address] Patient: SOWMYA BRIGHT Visit ID: [id number] 56y, F Weight: 63.5 kg Height/Length: 62 in BMI: 25.6 ALLERGIES: No Known Drug Allergy Given 14:12 06/21/2016 Criselda Catherine REkaterinaNEkaterina Medication Administered: MACROBID [PO], Dose: 100 mg Capsules PO. Medication Ordered: Macrobid PO 100 mg (NOW). Given 15:03 06/21/2016 Criselda Catherine REkaterinaNEkaterina Medication Administered: ZYPREXA ZYDIS ODT [PO] (OLANZAPINE), Dose: 5 mg Tablets PO. Medication Ordered: ZyPREXA Zydis ODT PO 5 mg (NOW). Given 16:24 06/21/2016 Kayla Cobian R.N. Medication Administered: ZYPREXA ZYDIS ODT [PO] (OLANZAPINE), Dose: 5 mg PO. Medication Ordered: ZyPREXA Zydis ODT PO 5 mg (NOW). Given 18:06 06/21/2016 Dwayne Reyes RAlec Medication Administered: ATIVAN [IM] (LORAZEPAM), Dose: 2 mg IM. Medication Ordered: Ativan IM 2 mg (HIGH ALERT MEDICATION, NOW).
--- NOTE | 2016-06-22 06:43 | ED MED RECONCILIATION SUMMARY ---
Patient: SOWMYA BRIGHT Medication Reconciliation Report [facility] VisitID: [id number] [address] [place] [address] 56y, F Registration Date/Time: 06/21/2016 Weight: 63.5 kg Height/Length: 62 in. BMI: 25.6 ALLERGIES: No Known Drug Allergy The patient's Home Medications are listed below: CONTINUE TAKING THE FOLLOWING MEDICATIONS: ASA Oral Lisinopril Oral The source(s) of the original Home Medication information: patient's spouse The following Medications were given to the patient in the Emergency Department: Macrobid [PO] PO 100 mg, administered: 06/21/2016 2:12:00 PM ZYPREXA ZYDIS ODT [PO] PO 5 mg, administered: 06/21/2016 3:03:00 PM ZYPREXA ZYDIS ODT [PO] PO 5 mg, administered: 06/21/2016 4:24:00 PM Ativan [IM] IM 2 mg, administered: 06/21/2016 6:06:00 PM The following Medications were prescribed to the patient: Macrobid 100 mg: Take 1 capsule orally every 12 hours for 7 days. No refills. Substitution is permissible. -- Nelson Domínguez Dr. Zyprexa 10 mg: take 1 tablet orally every day. Dispense ten (10). No refills. Substitution is permissible -- Nelson Domínguez Dr.
== END 2016-06-22 05:37 | disposition home or self-care (01) ==
LOC: ED SRH 12:08
DX: F43.22 Adjustment disorder with anxiety (principal); F30.2 Manic episode, severe with psychotic symptoms; F23 Brief psychotic disorder; N30.90 Cystitis, unspecified without hematuria; I10 Essential (primary) hypertension; Z79.82 Long term (current) use of aspirin; Z79.899 Other long term (current) drug therapy
CPT/HCPCS: 90004; 90100; 90469; 92010; 92760; 92761; 92762; 92763; 92764; 92765; 92766; 92767; 92780; 93070; 94060; 95059; 97000